=== PATIENT | female | born 1940 | race Caucasian/White ===

== ENCOUNTER 2018-10-09 12:23 | Observation (INO) | payer OTHER ==
[2018-10-09] MEDS ORDERED: ONDANSETRON 4 MG/2 ML VIAL IV PRN (15:00)
[2018-10-09] MEDS ORDERED: ONDANSETRON 4 MG (ODT) TAB PO PRN (15:00)
[2018-10-09] MEDS ORDERED: LOPERAMIDE HCL 2 MG CAPSULE PO PRN (15:00)
[2018-10-09] MEDS ORDERED: POLYETHYL GLY 3350 17 GM/DOSE PO PRN (15:00)
[2018-10-09] MEDS ORDERED: ACETAMINOPHEN 325 MG TABLET PO PRN (15:00)
[2018-10-09] MEDS ORDERED: DIPHENHYDRAMINE 25 MG TAB/CAP PO PRN (15:00)
[2018-10-09] MEDS: NACHLORIDE 0.45% 1,000 ML IV SCH (15:12)
[2018-10-09 15:43] LABS: Absolute Lymphocytes (CBC) 1.1 K/uL (0.7-4.9); Absolute Monocytes 0.4 K/uL (0.1-1.3); Absolute Neutrophil 1.8 K/uL (1.8-8.0); Hematocrit 25.6 % (36.0-45.0); Lymphocytes % 31.9 % (15.3-44.8); MCH 33.7 pg (27.0-35.0); MPV 7.6 fL (7.6-11.3); Monocytes % 10.3 % (3.3-12.3); RBC Red Blood Cell Count 2.56 M/uL (3.86-4.86)
[2018-10-09 15:47] LABS: Protime INR 1.56
[2018-10-09 16:12] LABS: Albumin 3.3 g/dL (3.4-5.0); Bilirubin Direct 0.2 mg/dL (0-0.2); Bilirubin Total 0.4 mg/dL (0.2-1.0); Ferritin 122.1 ng/mL (8-388); Magnesium 2.5 mg/dL (1.8-2.4); Phosphorus 3.5 mg/dL (2.5-4.9); Potassium 3.6 mmol/L (3.5-5.1); Protein, Total 6.2 g/dL (6.4-8.2)
--- NOTE | 2018-10-09 17:36 | RAD REPORT ---
EXAM DESCRIPTION: CT - Abdomen Pelvis W Contrast - 10/09/2018 5:00 pm CLINICAL HISTORY: GI bleed, abdominal pain, diarrhea COMPARISON: None. TECHNIQUE: Biphasic, helical CT imaging of the abdomen and pelvis was performed following 100 ml non -ionic IV contrast. Oral contrast was given. All CT scans are performed using dose optimization technique as appropriate and may include automated exposure control or mA/KV adjustment according to patient size. FINDINGS: No suspicious findings in the lung bases. Cardiomegaly present without pericardial effusio n. The liver, spleen, and pancreas show no suspicious findings. Two large gallstones are present in a no rmal-sized gallbladder. No acute gallbladder process seen. No biliary tree dilatation. Symmetric renal function is seen with no hydronephrosis or suspicious renal mass. No pyelonephritis o r acute renal parenchymal process. No urinary bladder abnormality. Uterus is absent. Ovaries are abse nt or atrophic. No gastric dilatation or wall thickening. Stomach is only partially filled. No dilated large or small bowel. Patient has moderate stool volume throughout the colon and a moderately prominent sigmoid div erticulosis. No diverticulitis findings. No free air, free fluid or inflammatory stranding. No lakhwinder ia, mass or bulky lymphadenopathy. The urinary bladder is without significant finding. No adrenal abn ormality. No suspicious bony findings. IMPRESSION: No free air, obstruction or other surgically emergent finding. Moderately large stool volume throughout the colon with prominent diverticulosis. No diverticulitis o r acute GI process seen. Cholelithiasis without active gallbladder or biliary tree process identifiable. Cardiomegaly.
--- NOTE | 2018-10-09 17:37 | RAD REPORT ---
EXAM DESCRIPTION: RAD - Chest Pa And Lat (2 Views) - 10/09/2018 5:22 pm CLINICAL HISTORY: Syncope, chest pain COMPARISON: None. TECHNIQUE: PA and lateral views of the chest were obtained. FINDINGS: The lungs are fibrotic. No peripheral mass or consolidation. Upper lobe vasculature withi n normal limits. Mild cardiomegaly without vascular engorgement. Trachea is midline. No pleural effus ion or pneumothorax seen. No acute bony finding noted. No aortic abnormality. IMPRESSION: Prominent fibrotic lung pattern without acute cardiopulmonary finding.
--- NOTE | 2018-10-09 17:37 | RAD REPORT ---
EXAM DESCRIPTION: RAD - Hip Left 2 View - 10/09/2018 5:23 pm CLINICAL HISTORY: Fall, hip pain COMPARISON: None. FINDINGS: AP and frogleg views of the left hip were obtained. There is no fracture or dislocation. N o acute or destructive bony process seen. No soft tissue abnormality. IMPRESSION: Negative left hip examination for acute or significant findings.
--- NOTE | 2018-10-09 18:25 | RAD REPORT ---
EXAM DESCRIPTION: MRI - Brain Wo Cont - 10/09/2018 5:49 pm CLINICAL HISTORY: Syncope, right-sided weakness COMPARISON: None. TECHNIQUE: Sagittal T1-weighted images were obtained along with axial PD, heavily T2-weighted and T2 -FLAIR images. Axial DWI and ADC mapping sequences were also obtained along with coronal heavily T2-w eighted images. FINDINGS: No intracranial hemorrhage, mass or acute infarction. There is no edema or shift of midlin e structures. Mild to moderate underlying atrophy changes are present. Ventricular size is in proport ion. There is a large area of abnormal T2 signal with associated volume loss changes in the left cere bral frontal parietal junction. Scattered white matter signal abnormalities elsewhere in the cerebral hemispheres. Brainstem, cerebellum and basal ganglia are mostly spared. Meier-matter/white matter kirti ction is preserved. Signal voids are seen as a normal finding in the major intracranial vessels. No globe or orbital content abnormality. Sella and suprasellar regions are normal. Mastoid air cells and paranasal sinuses are clear. IMPRESSION: No acute infarction. No hemorrhage, mass or acute intracranial finding. 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
--- NOTE | 2018-10-09 18:37 | RAD REPORT ---
EXAM DESCRIPTION: MRI - Hip Left Wo Cont - 10/09/2018 6:19 pm CLINICAL HISTORY: Multiple fall history, pain out of proportion to imaging and physical exam finding s COMPARISON: Left hip October 09, CT imaging October 09 TECHNIQUE: Multiplanar imaging of the pelvis and hip joints performed using T1 weighted, T2 fat satu ration, T2 STIR and proton density sequencing. FINDINGS: Marrow signal characteristics of the proximal left femur are normal and similar to the rig ht side. No sacral ala fracture. Bony pelvis is intact. No joint effusion or periarticular abnormalit y seen. Contusion or edema changes are present in the inferior muscle fibers of the left-side gluteus musculature posterior to the left ischium. This is likely the impact site of the recent fall. There is no hematoma. No signal abnormality in the ischium. IMPRESSION: No hip fracture. Bruising or contusion changes in the muscles and soft tissues posterior to the left ischium. There is no measurable hematoma.
[2018-10-09] MEDS: FERROUS SULFATE 325 MG TAB PO SCH (21:00)
[2018-10-09] MEDS: MELATONIN 3 MG TABLET PO SCH (21:00)
[2018-10-09] MEDS: ATORVASTATIN 10 MG TAB PO SCH (21:00)
[2018-10-09 22:27] LABS: Urine Appearance CLEAR; Urine Bilirubin NEGATIVE (NEG); Urine Blood TRACE (NEG); Urine Color YELLOW; Urine Glucose NEGATIVE (NEG); Urine Protein NEGATIVE (NEG); Urine Specific Gravity 1.015 (1.005-1.030); Urine Urobilinogen 0.2 mg/dL (0.2-1.0)
[2018-10-09 22:28] LABS: Urine Microscopic Reflex ORDER UMIC
[2018-10-09 22:51] LABS: Urine Bacteria 20-50 /HPF (<20); Urine Culture Reflex Order REFLEXED; Urine RBC <5 /HPF (NONE SEEN)
[2018-10-10 06:38] LABS: Absolute Lymphocytes (CBC) 0.7 K/uL (0.7-4.9); Absolute Monocytes 0.3 K/uL (0.1-1.3); Absolute Neutrophil 1.6 K/uL (1.8-8.0); Basophils % 1.2 % (0-1.3); Hematocrit 21.2 % (36.0-45.0); Lymphocytes % 25.6 % (15.3-44.8); MCH 34.2 pg (27.0-35.0); MPV 8.3 fL (7.6-11.3); RBC Red Blood Cell Count 2.15 M/uL (3.86-4.86)
[2018-10-10 06:52] LABS: Magnesium 2.4 mg/dL (1.8-2.4); Potassium 3.9 mmol/L (3.5-5.1)
[2018-10-10] MEDS: DIGOXIN 0.125 MG TABLET PO SCH (08:43)
[2018-10-10] MEDS: MAGNESIUM OXIDE 400 MG TAB PO SCH (08:44)
[2018-10-10] MEDS ORDERED: MAGNESIUM OXIDE 400 MG PO SCH (09:00)
[2018-10-10] MEDS ORDERED: SODIUM CHLORIDE 0.9% 10ML INJ IV PRN (09:43)
[2018-10-10] MEDS ORDERED: NA CHLORIDE 0.9% 250 ML ONE ×3 (10:01→19:56)
[2018-10-10 10:26] LABS: Urine White Blood Cell Casts OK
[2018-10-10 10:27] LABS: Anisocytosis 1+; Blood Morphology Comment NOTED (NOT SEEN); Platelet Estimate ADEQ
--- NOTE | 2018-10-10 12:11 | EKG ---
Test Date: 2018-10-09 Test Time: 16:33:13 Performance Improvement Coordinator: VERENICE MEASUREMENT RESULTS: Intervals: Rate: 69 IA: QRSD: 86 QT: 410 QTc: 439 [place]: P: IA: QRS: 58 T: -17 INTERPRETIVE STATEMENTS: Atrial fibrillation Low voltage QRS Nonspecific ST and T wave abnormality, probably digitalis effect Abnormal ECG No previous ECG available for comparison Electronically Signed On 10-10-18 12:09:15 DENTAL SERVICES DIRECTOR by Mike Sher
[2018-10-10] MEDS ORDERED: Ringers Lactate 1,000 ML IV ONE (15:49)
[2018-10-10] MEDS ORDERED: LIDOCAINE 1% MPF 5 ML VIAL ONE (15:57)
[2018-10-10] MEDS ORDERED: PROPOFOL 200 MG/20 ML VIAL IV ONE (15:57)
--- NOTE | 2018-10-10 17:48 | P.PN ---
Subjective Date of Service: 10/10/18 Chief Complaint: FEELS BETTER, SOME WEAK, GENERAL. SHE HAS NO CHEST PAIN, DYSPNEA, WEAKNESS OR FATIGUE. Review of Systems 10-point ROS is otherwise unremarkable Physical Examination - Vital Signs Temperature: 97.8 F Blood Pressure: 110/60 Pulse: 71 Respirations: 16 Pulse Ox (%): 98 - Physical Exam General: Alert, In no apparent distress HEENT: Atraumatic, PERRLA, EOMI Neck: Supple, JVD not distended Respiratory: Clear to auscultation bilaterally, Normal air movement Cardiovascular: Regular rate/rhythm, Normal S1 S2 Gastrointestinal: Normal bowel sounds, No tenderness Musculoskeletal: No tenderness Integumentary: No rashes Neurological: Normal speech, Normal tone, Normal affect Lymphatics: No axilla or inguinal lymphadenopathy - Studies Laboratory Data (last 24 hrs) 10/10/18 06:00: Sodium 142, Potassium 3.9, BUN 24 H, Creatinine 0.80, Glucose 85 , Magnesium 2.4 10/10/18 06:00: WBC 2.8 L D, Hgb 7.3 L*, Hct 21.2 L D, Plt Count 168 Medications List Reviewed: Yes Assessment And Plan - Current Problems (Diagnosis) (1) Anemia Current Visit: Yes Status: Acute Plan: DOWN TO 7.3 GM. TRANSFUSE TWO UNITS PACKED RBCS. CALLED DR. SOLORIO TO GET EGD DONE. HE IS NOT OYSTER UNLOADER TODAY. THIS WHOLE WEEK WE HAVE NO GI DOCTOR OYSTER UNLOADER AT THIS HOSPITAL I STARTED HER ON PROTONIX. TALKED TO SON AND ANSWERS ALL QUESTIONS, ABOUT MRI, CT SCAN, GALL STONES. SHE WITH NO PAIN IN ABDOMEN , GALL STONES ARE LEFT ALONE. SHE HAS NO PULMONARY SYMPTOMS. (2) Gastrointestinal bleed Onset Date: 10/10/18 Current Visit: Yes Status: Acute
[2018-10-10] MEDS: ATORVASTATIN 10 MG TAB PO SCH (20:48)
[2018-10-10] MEDS: FERROUS SULFATE 325 MG TAB PO SCH (20:48)
[2018-10-10] MEDS: MELATONIN 3 MG TABLET PO SCH (20:48)
[2018-10-11] MEDS: NACHLORIDE 0.45% 1,000 ML IV SCH (00:20)
[2018-10-11 01:21] LABS: Hematocrit 33.1 % (36.0-45.0)
[2018-10-11 06:31] LABS: Absolute Monocytes 0.5 K/uL (0.1-1.3); Absolute Neutrophil 2.2 K/uL (1.8-8.0); Basophils % 0.4 % (0-1.3); Eosinophils % 6.8 % (0-4.4); Hematocrit 32.6 % (36.0-45.0); Lymphocytes % 25.6 % (15.3-44.8); MCH 32.7 pg (27.0-35.0); MCV 95.4 fL (80-100); RBC Red Blood Cell Count 3.42 M/uL (3.86-4.86)
[2018-10-11 06:34] LABS: Magnesium 2.4 mg/dL (1.8-2.4); Potassium 4.5 mmol/L (3.5-5.1)
[2018-10-11] MEDS: MAGNESIUM OXIDE 400 MG TAB PO SCH (08:56)
[2018-10-11] MEDS: DIGOXIN 0.125 MG TABLET PO SCH (08:56)
[2018-10-11] MEDS ORDERED: PANTOPRAZOLE 40 MG INJ IVP SCH (09:00)
--- NOTE | 2018-10-11 19:31 | OP ---
Date of Procedure: 10/10/2018 Surgeon: Cristian Carnes MD Procedure To Be Performed: Esophagogastroduodenoscopy. Indication For Procedure: Anemia, suspected upper GI bleed. Plan For Anesthesia: Monitored anesthesia care. Technique: After obtaining informed consent from the patient and explaining risks and complications which include, but are not limited to, bleeding, infection, perforation, and anesthesia complication, the patient was placed in the left lateral position and sedation was given. From then on, the scope was advanced into the mouth and carefully guided up to the third portion of the duodenum. There was no evidence of active bleeding. After the completion of examination, the scope and equipment were w ithdrawn and procedure terminated in a safe manner. Findings: Esophagus: In the mid esophagus, there was an area of mucosal granularity that was seen. Biopsies were taken. There was evidence of LA grade B esophagitis in the distal esophagus as well a s a small hiatal hernia. Stomach: Mild patchy erythema seen in the antrum; however, in the body, there was a patch of moderat e erythema with few erosions. Biopsies taken from the body and antrum. Duodenum: The bulb and second portion appeared normal. Complications: None. Tolerance To Anesthesia: Excellent. Postoperative Diagnoses: Abnormal esophageal biopsy, esophagitis, erosive gastritis. Plan: 1.Await pathology results. 2.PPI to continue. 3.I will start back on diet, advance as tolerated. 4.Even though there was no stigmata of significant bleeding, it may be possible that the findings co uld have caused a slow chronic anemia. We will continue to evaluate this situation. If needed, furt her management can be undertaken as an outpatient basis. US/MODL Voice ID: [id number] Report ID: [id number]
--- NOTE | 2018-10-11 21:33 | P.DS ---
Admission Date: 10/09/18 Discharge Date: 10/11/18 Disposition: DC HOME/HOME HEALTH CARE Reason for Admission: FEELS BETTER, SOME WEAK, GENERAL. - Problems (1) Anemia Status: Acute (2) Gastrointestinal bleed Onset Date: 10/10/18 Status: Acute Hospital Course: MS. SCOTT HAS EROSIVE GASTRITIS LEADING TO ANEMIA . WE HAD TO STOP XARELTO. FAMILY UNDERSTANDS THE RISK OF XARELTO AND NOT HAVING IT. DR. ADAMS IS MADE AWARE. SHE IS STABLE TO DISCHARGE. FEELS WELL. SON AT BEDSIDE. IF CONTINUES TO HAVE ANEMIA OR MORE LOSS OF BLOOD , WILL GET COLONSCOPY DONE. RISK OF IT IS HIGHER THAN EGD. Vital Signs/Physical Exam: Temp Pulse Resp BP Pulse Ox 97 F 67 18 152/69 H 98 10/11/18 08:00 10/11/18 08:00 10/11/18 08:00 10/11/18 08:00 10/11/18 08:00 Laboratory Data at Discharge: WBC 4.1 K/uL (4.3-10.9) L D 10/11/18 06:05 Hgb 11.2 g/dL (12.0-15.0) L 10/11/18 06:05 Hct 32.6 % (36.0-45.0) L 10/11/18 06:05 Plt Count 187 K/uL (152-406) 10/11/18 06:05 PT 18.5 SECONDS (9.5-12.5) H 10/09/18 15:25 INR 1.56 10/09/18 15:25 APTT 34.5 SECONDS (24.3-36.9) 10/09/18 15:25 Sodium 143 mmol/L (136-145) 10/11/18 06:05 Potassium 4.5 mmol/L (3.5-5.1) 10/11/18 06:05 BUN 18 mg/dL (7-18) 10/11/18 06:05 Creatinine 0.80 mg/dL (0.55-1.3) 10/11/18 06:05 Glucose 97 mg/dL (74-106) 10/11/18 06:05 Phosphorus 3.5 mg/dL (2.5-4.9) 10/09/18 15:25 Magnesium 2.4 mg/dL (1.8-2.4) 10/11/18 06:05 Total Bilirubin 0.4 mg/dL (0.2-1.0) 10/09/18 15:25 AST 31 U/L (15-37) 10/09/18 15:25 ALT 35 U/L (12-78) 10/09/18 15:25 Alkaline Phosphatase 63 U/L (45-117) 10/09/18 15:25 Home Medications: Atorvastatin Calcium [Lipitor*] 1 tab PO BEDTIME 10/09/18 Calcium Carbonate [Calcium] 1,000 mg PO BID 10/09/18 Cholecalciferol (Vitamin D3) [Vitamin D 1000 Iu Tab*] 2,000 unit PO DAILY Digoxin [Lanoxin*] 0.125 mg PO DAILY 10/09/18 Ferrous Sulfate [Ferrous Sulfate*] 1 tab PO BEDTIME 10/09/18 Furosemide [Lasix] 1 tab PO DAILY 10/09/18 Magnesium Oxide [Mag-Oxide] 400 mg PO DAILY 10/09/18 Melatonin 1 tab PO BEDTIME 10/09/18 Multivitamin [Daily Multivitamin] 1 tab PO DAILY 10/09/18 [place]-3S/Dha/Epa/Fish Oil/D3 [[place]-3 + D Softgel] 1 cap PO BEDTIME 10/09/18 Potassium Chloride 1 tab PO DAILY 10/09/18 Pantoprazole [Protonix Tab*] 40 mg PO DAILY #90 tab 10/11/18 New Medications: Pantoprazole [Protonix Tab*] 40 mg PO DAILY #90 tab Followup: Jorden Segura MD [Primary Care Provider] - (Call for appointment for 1-2 weeks.)
== END 2018-10-11 10:14 | disposition home health service (06) ==
LOC: 2ND 12:42
PROVIDERS: ADMIT Internal Medicine; ATTEND Internal Medicine
PROC: 0DB68ZX Excision of Stomach, Via Natural or Artificial Opening Endoscopic, Diagnostic (ICD-10-PCS; 2018-10-10)
PROC: 30233N1 Transfusion of Nonautologous Red Blood Cells into Peripheral Vein, Percutaneous Approach (ICD-10-PCS; 2018-10-10)
PROC: 0DB58ZX Excision of Esophagus, Via Natural or Artificial Opening Endoscopic, Diagnostic (ICD-10-PCS; principal; 2018-10-10 16:00)
DX: D64.9 Anemia, unspecified (principal); K92.2 Gastrointestinal hemorrhage, unspecified; K29.70 Gastritis, unspecified, without bleeding; K20.9 Esophagitis, unspecified; K44.9 Diaphragmatic hernia without obstruction or gangrene; I48.91 Unspecified atrial fibrillation; I10 Essential (primary) hypertension; Z86.73 Personal history of transient ischemic attack (TIA), and cerebral infarction without residual deficits
CPT/HCPCS: 36415 ×2; 36430; 43239; 70551; 71046; 73502; 73721; 74177; 80048 ×3; 80076; 82728; 83735 ×3; 84100; 85014; 85018; 85025 ×3; 85610; 85730; 86850; 86900; 86901; 87040; 87086; 87088; 88305; 88312; 88313; 93005; 94760 ×2; C9113; J2704; P9016 ×2; Q9967; 81003; 81015

== ENCOUNTER 2018-11-02 01:44 | Observation (INO) | payer OTHER ==
[2018-11-02] MEDS ORDERED: ONDANSETRON 4 MG/2 ML VIAL ONE (02:02)
[2018-11-02 02:21] LABS: Protime INR 1.08
[2018-11-02 02:27] LABS: Absolute Lymphocytes (CBC) 2.2 K/uL (0.7-4.9); Absolute Monocytes 0.7 K/uL (0.1-1.3); Absolute Neutrophil 7.4 K/uL (1.8-8.0); Basophils % 0.4 % (0-1.3); Eosinophils % 1.9 % (0-4.4); Hematocrit 35.1 % (36.0-45.0); Lymphocytes % 20.7 % (15.3-44.8); MPV 8.5 fL (7.6-11.3); RBC Red Blood Cell Count 3.62 M/uL (3.86-4.86)
[2018-11-02 02:40] LABS: Arterial Blood Carboxyhemoglob 0.9 % (0-1.5); Blood Gas Oxyhemoglobin 96.7 % (94-97); Blood O2 Saturation 98.7 % (92-98.5)
[2018-11-02 02:51] LABS: Albumin 3.4 g/dL (3.4-5.0); Bilirubin Direct 0.2 mg/dL (0-0.2); Bilirubin Total 0.5 mg/dL (0.2-1.0); Protein, Total 7.2 g/dL (6.4-8.2); Troponin (Emerg Dept Use Only) 0.02 ng/mL (0.0-0.045)
[2018-11-02] MEDS ORDERED: NA CHLORIDE 0.9% 1,000 ML ONE (03:21)
[2018-11-02] MEDS ORDERED: Levofloxacin500mg IV 500 MG/100 ML BAG IV ONE (03:29)
--- NOTE | 2018-11-02 04:56 | ER ---
Nurse's Notes [facility] Name: Criselda Arango Age: 78 yrs Sex: Female : 1940 Arrival Date: 11/02/2018 Time: 01:44 Bed 7 Private MD: Diagnosis: Dyspnea;Cardiomegaly;Cholelithiasis;Diastolic (congestive) heart failure;Pleural effusion in conditions classified elsewhere;Acidosis-respiratory acidosis;Atrial fibrillation and flutter Presentation: 11/02 01:42 Presenting complaint: EMS states: Pt lives at [facility], pt reports abdominal pain ea and respiratory distress that started at 0015. Transition of care: patient was not received from another setting of care. Onset of symptoms was November 02, 2018. Risk Assessment: Do you want to hurt yourself or someone else? Patient reports no desire to harm self or others. Initial Sepsis Screen: Does the patient meet any 2 criteria? RR > 20 per min. HR > 90 bpm. Yes Does the patient have a suspected source of infection? No. Patient's initial sepsis screen is negative. Care prior to arrival: 20 G to left AC. 01:42 Method Of Arrival: EMS: [facility] ea 01:42 Acuity: CAITIE 3 ea Triage Assessment: 01:42 General: Appears distressed, uncomfortable, Behavior is restless, Pt placed on BiPAP ea per respiratory, tolerating well. . Pain: Complains of pain in abdomen. Neuro: Level of Consciousness is awake, alert, obeys commands, Oriented to person, place, time, situation. Cardiovascular: Heart tones S1 S2 present Patient's skin is warm and dry. Rhythm is atrial fibrillation. Respiratory: Respiratory: Airway is patent Respiratory effort is labored, Respiratory pattern is tachypnea Breath sounds are clear bilaterally. GI: Abdomen is round non-distended, Bowel sounds present X 4 quads. Reports lower abdominal pain, upper abdominal pain, diarrhea, nausea. Derm: Skin is clammy, Skin is pale, Skin temperature is warm. Historical: - Allergies: 02:16 Sulfa (Sulfonamide Antibiotics); ea - Home Meds: 04:24 Ferrous Sulfate Oral nightly [Active]; digoxin 125 mcg oral tab once daily [Active]; lp1 MagOx 400 mg oral tab daily [Active]; Melatonin Oral nightly [Active]; Protonix 40 mg Oral TbEC 1 tab once daily [Active]; calcium carbonate 500 mg calcium (1,250 mg) Oral tab 1,000 mg twice a day [Active]; Vitamin D3 2,000 unit oral tab daily [Active]; dhfzb-7v-vox-epa-fish oil-D3 300 mg-1,200 mg -1,000 unit oral cap nightly [Active]; 04:31 potassium chloride 20 mEq oral TbER once daily [Active]; Lasix 20 mg oral tab once lp1 daily [Active]; atorvastatin 10 mg oral tab nightly [Active]; - PMHx: 02:16 Atrial Fib; ea 04:24 Corrosive gastritis; Anemia; lp1 04:31 Aortic valve regurgitation; Mitral valve regurgitation; CVA; LVH; pulmonary HTN; lp1 - Immunization history:: Adult Immunizations up to date. - Social history:: Smoking status: Patient/guardian denies using tobacco. - Ebola Screening: : No symptoms or risks identified at this time. Screenin:17 Abuse screen: Denies threats or abuse. Nutritional screening: No deficits noted. ea Tuberculosis screening: No symptoms or risk factors identified. Fall Risk Assessment: 01:45 Reassessment: see triage assessment. ea 02:55 Reassessment: Patient and/or family updated on plan of care and expected duration. Pain ea level reassessed. Patient states feeling better. Patient states symptoms have improved. 04:02 Reassessment: Patient appears in no apparent distress at this time. Patient and/or ca1 family updated on plan of care and expected duration. Pain level reassessed. Patient is alert, oriented x 3, equal unlabored respirations, skin warm/dry/pink. family at bedside. . 05:00 Reassessment: Dr. Ty at bedside to discuss results with patient and son; Denies lp1 any abdominal pain on palpation. Respiratory: Respiratory effort is even. Derm: Skin is fragile, is thin, Skin is dry, Skin is normal. 06:00 Reassessment: Assisted patient to bedside commode. Tolerated well, no dyspnea or pain ca1 upon ambulation noted and reported. . 06:05 Reassessment: Called 2nd floor to give report. Informed that the nurse taking the ca1 patient is currently transferring a patient to ICU. Informed patient and family. . 06:39 Reassessment: Patient appears in no apparent distress at this time. Assisted to the ca1 commode. Tolerated well. No respiratory distress and pain noted and reported. . Vital Signs: 01:45 BP 163 / 88; Pulse 123; Resp 32; Temp 97.6; Pulse Ox 89% on Non-rebreather mask; Weight ea 77.11 kg; Height 5 ft. 8 in. (172.72 cm); 02:26 BP 136 / 72; Pulse 79; Resp 23; Pulse Ox 99% ; ea 02:53 BP 134 / 65; Pulse 90; Resp 23; Pulse Ox 100% on BiPAP O2 75%, IPAP 20, PIP 16; ea 04:00 BP 130 / 53; Pulse 87; Resp 24; Pulse Ox 97% on 4 lpm NC; ca1 05:00 BP 122 / 62; Pulse 88; Resp 23; Pulse Ox 95% on 4 lpm NC; Pain 0/10; ca1 06:30 BP 125 / 60; Pulse 84; Resp 23; Pulse Ox 100% on 4 lpm NC; ca1 01:45 Body Mass Index 25.85 (77.11 kg, 172.72 cm) ea 01:45 Pt placed on bipap per biological science technician fish ea ED Course: 01:42 Patient has correct armband on for positive identification. Placed in gown. Bed in low ea position. Call light in reach. Side rails up X2. 01:42 Arm band placed on right wrist. Patient placed in an exam room, on a stretcher, on ea oxygen, on telegraph inspector, on pulse oximetry. 01:42 Maintain EMS IV. Dressing intact. Good blood return noted. Site clean \T\ dry. Gauge \T\ ea site: 20 G to left AC. 01:44 Patient arrived in ED. al2 01:50 Initial lab(s) drawn, by me, sent to lab. First set of blood cultures drawn. Inserted ca1 saline lock: 20 gauge in right antecubital area, using aseptic technique. Blood collected. 01:53 Rivera Dougherty PA is PHCP. jr8 01:53 Gonzalo Ty MD is Attending Physician. jr8 02:05 Second set of blood cultures drawn by me. ca1 02:09 Triage completed. ea 02:15 X-ray completed. Portable x-ray completed in exam room. Patient tolerated procedure kw well. 02:17 XRAY Chest (1 view) In Process Unspecified. EDMS 02:39 Gabriela Hardy, QUIN is Primary Nurse. ea 02:53 Notified Nurse Practitioner and/or Physician [employer] Scout of a critical lab result(s), lp1 Lactate 3.9. 03:00 Report given to Gem TSAI. ea 03:[address] via stretcher. eh 03:58 CT completed. Patient tolerated procedure well. Patient moved back from CT. eh 03:59 CT Abd/Pelvis - W/Contrast In Process Unspecified. EDMS 04:55 Jorden Segura MD is Hospitalizing Provider. yen 06:35 No provider procedures requiring assistance completed. Patient admitted, IV remains in lp1 place. Administered Medications: 01:50 Drug: Zofran 4 mg Route: IVP; Site: left antecubital; ea 03:01 Follow up: Response: No adverse reaction ca1 03:15 Drug: NS 0.9% 1000 ml Route: IV; Rate: 1000 ml; Site: right antecubital; ca1 04:20 Follow up: IV Status: Completed infusion ca1 03:20 Drug: LevaQUIN 500 mg Volume: 100 ml; Route: IVPB; Infused Over: 60 mins; Site: right ca1 antecubital; 04:20 Follow up: Response: No adverse reaction; IV Status: Completed infusion ca1 04:36 Drug: SOLU-Medrol 125 mg Route: IVP; Site: right antecubital; ca1 06:38 Follow up: Response: No adverse reaction ca1 04:40 Drug: Digoxin 0.5 mg Route: IVP; Site: right antecubital; ca1 06:37 Follow up: Response: No adverse reaction ca1 05:10 Drug: ProTONIX 40 mg Route: IVP; Site: right antecubital; ca1 06:38 Follow up: Response: No adverse reaction ca1 05:12 Drug: AtroVENT Aerosol 0.5 mg Route: Inhalation; ca1 05:12 Drug: Xopenex 1.25 mg Route: Inhalation; ca1 05:15 Drug: Lasix 20 mg Route: IVP; Site: right antecubital; ca1 06:38 Follow up: Urine output 120 ml; Response: No adverse reaction ca1 Output: 06:38 Urine: 120ml; Total: 120ml. ca1 Outcome: 04:55 Decision to Hospitalize by Provider. yen 06:35 Admitted to Med/surg accompanied by nurse, via wheelchair, room 223, with oxygen, with lp1 chart, Report called to QUIN Dobson 06:35 Condition: stable 06:35 Instructed on the need for admit. 07:05 Patient left the ED. ca1 Signatures: Dispatcher [employer] EDGonzalo Wakefield MD MD cha Hagler, Ervin eh Whitley, Kimberlee kw Pena, Laura, RN RN lp1 Rivera Dougherty PA PA jr8 Gabriela Hardy RN RN ea Love, Angelica al2 Acob, Cheryl, RN RN ca1 Corrections: (The following items were deleted from the chart) 02:38 01:42 General: Appears distressed, uncomfortable, Behavior is restless, ea ea 02:38 01:42 Respiratory: Airway is patent Respiratory effort is labored, Respiratory pattern ea is tachypnea Breath sounds are clear bilaterally. ea 04:24 02:16 Home Meds: atorvastatin oral oral; ea lp1 04:24 02:16 Home Meds: Ferrous Sulfate Oral; ea lp1 04:24 02:16 Home Meds: Digoxin Oral; ea lp1 04:24 02:16 Home Meds: Lasix Oral; ea lp1 04:24 02:16 Home Meds: MagOx oral oral; ea lp1 04:31 04:24 Home Meds: atorvastatin oral oral nightly; lp1 lp1 04:31 04:24 Home Meds: Lasix Oral once daily; lp1 lp1 04:31 04:24 Home Meds: Potassium Chloride Oral once daily; lp1 lp1
--- NOTE | 2018-11-02 04:56 | EDPHYS ---
Physician Documentation [facility] Name: Criselda Arango Age: 78 yrs Sex: Female : 1940 Arrival Date: 11/02/2018 Time: 01:44 Bed 7 Private MD: ED Physician Gonzalo Ty HPI: 11/02 02:29 This 78 yrs old Female presents to ER via EMS with complaints of Abdominal jr8 pain and shortness of breath. 02:29 Patient complained of diarrhea and abdominal pain for the past three days. Pain jr8 worsening and now having acute onset shortness of breath. Onset: The symptoms/episode began/occurred acutely. Severity of symptoms: At their worst the symptoms were moderate in the emergency department the symptoms are unchanged. The patient has not experienced similar symptoms in the past. The patient has not recently seen a physician. Historical: - Allergies: 02:16 Sulfa (Sulfonamide Antibiotics); ea - Home Meds: 04:24 Ferrous Sulfate Oral nightly [Active]; digoxin 125 mcg oral tab once daily [Active]; lp1 MagOx 400 mg oral tab daily [Active]; Melatonin Oral nightly [Active]; Protonix 40 mg Oral TbEC 1 tab once daily [Active]; calcium carbonate 500 mg calcium (1,250 mg) Oral tab 1,000 mg twice a day [Active]; Vitamin D3 2,000 unit oral tab daily [Active]; zswdo-2i-xyd-epa-fish oil-D3 300 mg-1,200 mg -1,000 unit oral cap nightly [Active]; 04:31 potassium chloride 20 mEq oral TbER once daily [Active]; Lasix 20 mg oral tab once lp1 daily [Active]; atorvastatin 10 mg oral tab nightly [Active]; - PMHx: 02:16 Atrial Fib; ea 04:24 Corrosive gastritis; Anemia; lp1 04:31 Aortic valve regurgitation; Mitral valve regurgitation; CVA; LVH; pulmonary HTN; lp1 - Immunization history:: Adult Immunizations up to date. - Social history:: Smoking status: Patient/guardian denies using tobacco. - Ebola Screening: : No symptoms or risks identified at this time. ROS: 02:29 Eyes: Negative for injury, pain, redness, and discharge, ENT: Negative for injury, jr8 pain, and discharge, Neck: Negative for injury, pain, and swelling, Cardiovascular: Negative for chest pain, palpitations, and edema, Back: Negative for injury and pain, MS/Extremity: Negative for injury and deformity, Skin: Negative for injury, rash, and discoloration, Neuro: Negative for headache, weakness, numbness, tingling, and seizure. 02:29 Respiratory: Positive for shortness of breath. 02:29 Abdomen/GI: Positive for abdominal pain, diarrhea. Exam: 02:29 Eyes: Pupils equal round and reactive to light, extra-ocular motions intact. Lids and jr8 lashes normal. Conjunctiva and sclera are non-icteric and not injected. Cornea within normal limits. Periorbital areas with no swelling, redness, or edema. ENT: Nares patent. No nasal discharge, no septal abnormalities noted. Tympanic membranes are normal and external auditory canals are clear. Oropharynx with no redness, swelling, or masses, exudates, or evidence of obstruction, uvula midline. Mucous membranes moist. Neck: Trachea midline, no thyromegaly or masses palpated, and no cervical lymphadenopathy. Supple, full range of motion without nuchal rigidity, or vertebral point tenderness. No Meningismus. Back: No spinal tenderness. No costovertebral tenderness. Full range of motion. Skin: Warm, dry with normal turgor. Normal color with no rashes, no lesions, and no evidence of cellulitis. MS/ Extremity: Pulses equal, no cyanosis. Neurovascular intact. Full, normal range of motion. Neuro: Awake and alert, GCS 15, oriented to person, place, time, and situation. Cranial nerves II-XII grossly intact. Motor strength 5/5 in all extremities. Sensory grossly intact. Cerebellar exam normal. Normal gait. 02:29 Cardiovascular: Rate: tachycardic, Rhythm: irregularly irregular, Pulses: Pulses are 2+ in right radial artery and left radial artery. Heart sounds: normal, normal S1and S2, no S3 or S4, no murmur, no rub, no gallop, Edema: is not appreciated. 02:29 Respiratory: mild respiratory distress is noted, Respirations: labored breathing, tachypnea, Breath sounds: decreased breath sounds, that are mild, are located in both bases. 02:29 Abdomen/GI: Inspection: scar(s), are noted in the , Palpation: soft, in all quadrants, mild abdominal tenderness, in the abdomen diffusely, mass, is not appreciated, rebound tenderness, is not appreciated, voluntary guarding, is not appreciated, involuntary guarding, is not appreciated, no appreciated organomegaly, Indicators: McBurney's point is not tender, Bee's sign is negative, Rovsing's sign is negative, Liver: tenderness, is not appreciated. Vital Signs: 01:45 BP 163 / 88; Pulse 123; Resp 32; Temp 97.6; Pulse Ox 89% on Non-rebreather mask; Weight ea 77.11 kg; Height 5 ft. 8 in. (172.72 cm); 02:26 BP 136 / 72; Pulse 79; Resp 23; Pulse Ox 99% ; ea 02:53 BP 134 / 65; Pulse 90; Resp 23; Pulse Ox 100% on BiPAP O2 75%, IPAP 20, PIP 16; ea 04:00 BP 130 / 53; Pulse 87; Resp 24; Pulse Ox 97% on 4 lpm NC; ca1 05:00 BP 122 / 62; Pulse 88; Resp 23; Pulse Ox 95% on 4 lpm NC; Pain 0/10; ca1 06:30 BP 125 / 60; Pulse 84; Resp 23; Pulse Ox 100% on 4 lpm NC; ca1 01:45 Body Mass Index 25.85 (77.11 kg, 172.72 cm) ea 01:45 Pt placed on bipap per supervisor respiratory ea MDM: 01:53 Patient medically screened. [facility] 02:29 Data reviewed: vital signs, nurses notes, lab test result(s), EKG, radiologic studies, jr plain films. Data interpreted: Pulse oximetry: on room air is 100 %. Interpretation: normal. Counseling: I had a detailed discussion with the patient and/or guardian regarding: the historical points, exam findings, and any diagnostic results supporting the discharge/admit diagnosis, lab results, radiology results, the need for further work-up and treatment in the hospital. 11/02 01:54 Order name: Basic Metabolic Panel; Complete Time: 03:09 11/02 01:54 Order name: CBC with Diff; Complete Time: 02:28 11/02 01:54 Order name: LFT's; Complete Time: 03:09 11/02 01:54 Order name: Magnesium; Complete Time: 03:11/02 01:54 Order name: NT PRO-BNP; Complete Time: 03:09 [facility] 11/02 01:54 Order name: PT-INR; Complete Time: 02:29 [facility] 11/02 01:54 Order name: Troponin (emerg Dept Use Only); Complete Time: 03:09 [facility] 11/02 01:54 Order name: Lipase; Complete Time: 03:09 [facility] 11/02 01:59 Order name: Blood Culture Adult (2) [facility] 11/02 01:59 Order name: Lactate; Complete Time: 03:09 [facility] 11/02 02:29 Order name: ABG 11/02 02:29 Order name: ABG Arterial Blood Gas; Complete Time: 03:09 [facility] 11/02 03:28 Order name: Digoxin; Complete Time: 04:30 [facility] 11/02 05:36 Order name: Lactate Sepsis 2 HR Follow-up; Complete Time: 23:13 [facility] 11/02 01:54 Order name: XRAY Chest (1 view); Complete Time: 23:13 [facility] 11/02 01:54 Order name: EKG; Complete Time: 01:55 11/02 01:54 Order name: Cardiac monitoring; Complete Time: 02:38 [facility] 11/02 01:54 Order name: EKG - Nurse/Tech; Complete Time: 02:38 [facility] 11/02 01:54 Order name: IV Saline Lock; Complete Time: 02:38 [facility] 11/02 03:10 Order name: CT Abd/Pelvis - W/Contrast; Complete Time: 23:13 [facility] 11/02 05:11 Order name: CONS Physician Consult [facility] 11/02 01:54 Order name: Labs collected and sent; Complete Time: 02:38 [facility] 11/02 01:54 Order name: O2 Per Protocol; Complete Time: 02:38 [facility] 11/02 01:54 Order name: O2 Sat Monitoring; Complete Time: 02:38 Administered Medications: 01:50 Drug: Zofran 4 mg Route: IVP; Site: left antecubital; ea 03:01 Follow up: Response: No adverse reaction ca1 03:15 Drug: NS 0.9% 1000 ml Route: IV; Rate: 1000 ml; Site: right antecubital; ca1 04:20 Follow up: IV Status: Completed infusion ca1 03:20 Drug: LevaQUIN 500 mg Volume: 100 ml; Route: IVPB; Infused Over: 60 mins; Site: right ca1 antecubital; 04:20 Follow up: Response: No adverse reaction; IV Status: Completed infusion ca1 04:36 Drug: SOLU-Medrol 125 mg Route: IVP; Site: right antecubital; ca1 06:38 Follow up: Response: No adverse reaction ca1 04:40 Drug: Digoxin 0.5 mg Route: IVP; Site: right antecubital; ca1 06:37 Follow up: Response: No adverse reaction ca1 05:10 Drug: ProTONIX 40 mg Route: IVP; Site: right antecubital; ca1 06:38 Follow up: Response: No adverse reaction ca1 05:12 Drug: AtroVENT Aerosol 0.5 mg Route: Inhalation; ca1 05:12 Drug: Xopenex 1.25 mg Route: Inhalation; ca1 05:15 Drug: Lasix 20 mg Route: IVP; Site: right antecubital; ca1 06:38 Follow up: Urine output 120 ml; Response: No adverse reaction ca1 Disposition: 04:57 Co-signature as Attending Physician, Jorden Segura MD I agree with the assessment and yen plan of care. Disposition: 11/02/18 04:55 Hospitalization ordered by Jorden Segura for Inpatient Admission. Preliminary diagnosis are Dyspnea, Cardiomegaly, Cholelithiasis, Diastolic (congestive) heart failure, Pleural effusion in conditions classified elsewhere, Acidosis - respiratory acidosis, Atrial fibrillation and flutter. - Bed requested for Telemetry/MedSurg (Inpatient). - Status is Inpatient Admission. ca1 - Condition is Fair. - Problem is new. - Symptoms have improved. UTI on Admission? No Signatures: Dispatcher [employer] EDMS Gonzalo Ty MD MD cha Martinez, Eric em1 Irene Wallace RN RN lp1 Rivera Dougherty PA PA jr8 Gabriela Hardy RN RN ea Acob, Cheryl, RN RN ca1 Corrections: (The following items were deleted from the chart) 04:24 02:16 Home Meds: atorvastatin oral oral; ea lp1 04:24 02:16 Home Meds: Ferrous Sulfate Oral; ea lp1 04:24 02:16 Home Meds: Digoxin Oral; ea lp1 04:24 02:16 Home Meds: Lasix Oral; ea lp1 04:24 02:16 Home Meds: MagOx oral oral; ea lp1 04:31 04:24 Home Meds: atorvastatin oral oral nightly; lp1 lp1 04:31 04:24 Home Meds: Lasix Oral once daily; lp1 lp1 04:31 04:24 Home Meds: Potassium Chloride Oral once daily; lp1 lp1 04:56 04:55 Hospitalization Ordered by Jorden Segura MD for Inpatient Admission. Preliminary yen diagnosis is Dyspnea; Cardiomegaly; Cholelithiasis; Diastolic (congestive) heart failure; Pleural effusion in conditions classified elsewhere; Acidosis - respiratory acidosis. Bed requested for Telemetry/MedSurg (Inpatient). Status is Inpatient Admission. Condition is Fair. Problem is new. Symptoms have improved. UTI on Admission? No. yen 05:45 04:56 11/02/2018 04:55 Hospitalization Ordered by Jorden Segura MD for Inpatient em1 Admission. Preliminary diagnosis is Dyspnea; Cardiomegaly; Cholelithiasis; Diastolic (congestive) heart failure; Pleural effusion in conditions classified elsewhere; Acidosis - respiratory acidosis; Atrial fibrillation and flutter. Bed requested for Telemetry/MedSurg (Inpatient). Status is Inpatient Admission. Condition is Fair. Problem is new. Symptoms have improved. UTI on Admission? No. yen 07:05 05:45 11/02/2018 04:55 Hospitalization Ordered by Jorden Segura MD for Inpatient ca1 Admission. Preliminary diagnosis is Dyspnea; Cardiomegaly; Cholelithiasis; Diastolic (congestive) heart failure; Pleural effusion in conditions classified elsewhere; Acidosis - respiratory acidosis; Atrial fibrillation and flutter. Bed requested for Telemetry/MedSurg (Inpatient). Status is Inpatient Admission. Condition is Fair. Problem is new. Symptoms have improved. UTI on Admission? No. em1
[2018-11-02] MEDS ORDERED: IPRATROPIUM BROM 0.5MG/2.5ML ONE (05:12)
[2018-11-02] MEDS ORDERED: METHYLPREDNISOLONE 125 MG INJ ONE (05:12)
[2018-11-02] MEDS ORDERED: FUROSEMIDE 20 MG/ 2ML VIAL ONE (05:12)
[2018-11-02] MEDS ORDERED: LEVALBUTEROL 1.25 MG/3 ML NEB ONE (05:12)
[2018-11-02] MEDS ORDERED: PANTOPRAZOLE 40 MG INJ ONE (05:13)
[2018-11-02] MEDS ORDERED: DIGOXIN 0.25 MG/ML AMP ONE (05:13)
--- NOTE | 2018-11-02 05:57 | EKG ---
Test Date: 2018-11-02 Test Time: 01:57:36 [employer]: MARIA E MEASUREMENT RESULTS: Intervals: Rate: 118 LA: QRSD: 90 QT: 312 QTc: 437 [place]: P: LA: QRS: 73 T: 1 INTERPRETIVE STATEMENTS: Atrial fibrillation with rapid ventricular response Nonspecific ST and T wave abnormality Abnormal ECG Compared to ECG 10/09/2018 16:33:13 No significant changes Electronically Signed On 11-02-18 05:57:09 [employer]IG BUILDER HEL[employer] by Urban Jernigan
[2018-11-02] MEDS ORDERED: ONDANSETRON 4 MG/2 ML VIAL IV PRN (07:46)
[2018-11-02] MEDS ORDERED: ACETAMINOPHEN 500 MG TAB PO PRN (07:46)
[2018-11-02] MEDS ORDERED: ALBUTEROL 2.5 MG/3 ML NEB SOL NEB PRN (07:46)
[2018-11-02] MEDS ORDERED: SODIUM CHLORIDE 0.9% 10ML INJ IV PRN (07:46)
[2018-11-02] MEDS ORDERED: IPRATROPIUM BROM 0.5MG/2.5ML NEB PRN (07:46)
--- NOTE | 2018-11-02 08:28 | RAD REPORT ---
EXAM DESCRIPTION: CTAbdomen Pelvis W Contrast - 11/02/2018 6:33 am CLINICAL HISTORY: Abdominal pain. iv only;Abd pain COMPARISON: Abdomen Pelvis W Contrast dated 10/09/2018 TECHNIQUE: Biphasic CT imaging of the abdomen and pelvis was performed with 100 ml non-ionic IV cont rast. All CT scans are performed using dose optimization technique as appropriate and may include automated exposure control or mA/KV adjustment according to patient size. FINDINGS: Small bilateral pleural effusions are present with linear atelectasis in both lung bases.M ild interstitial pulmonary edema suspected. The large stone is seen within the gallbladder. Mild periportal edema is seen in the liver. The splee n, adrenal glands and kidneys show no acute process. No pancreatic lesion is observed. Aortoiliac ath erosclerosis. No bowel obstruction, free air, free fluid or abscess. Prominent sigmoid diverticulosis is seen. The appendix is not identified as a discrete structure, however, no secondary findings of appendicitis ar e identified. No evidence of significant lymphadenopathy. No suspicious bony findings. IMPRESSION: Cholelithiasis. Mild CHF likely present.
--- NOTE | 2018-11-02 08:29 | RAD REPORT ---
EXAM DESCRIPTION: RAD - Chest Single View - 11/02/2018 2:19 am CLINICAL HISTORY: DYSPNEA Chest pain. COMPARISON: Chest Pa And Lat (2 Views) dated 10/09/2018 FINDINGS: Portable technique limits examination quality. Mild bilateral interstitial lung opacities are present, likely representing interstitial pneumonia or mild interstitial pulmonary edema. Trace pleural fluid is present bilaterally. The heart is mildly e nlarged in size. No displaced fractures.Aortic atherosclerosis. IMPRESSION: Mild CHF likely present.
[2018-11-02] MEDS ORDERED: PANTOPRAZOLE 40 MG INJ IVP SCH (09:00)
[2018-11-02] MEDS ORDERED: DIGOXIN 0.25 MG TABLET PO SCH (09:00)
--- NOTE | 2018-11-02 09:18 | RAD REPORT ---
EXAM DESCRIPTION: US - Abdomen Exam Limited - 11/02/2018 9:00 am CLINICAL HISTORY: gallstones COMPARISON: Abdomen Pelvis W Contrast dated 11/02/2018 FINDINGS: The gallbladder demonstrates multiple shadowing gallstones. No pericholecystic fluid or ga llbladder wall thickening. The common bile duct is normal measuring 4 mm. The liver demonstrates no findings of intrahepatic biliary dilatation. IMPRESSION: Cholelithiasis.
[2018-11-02] MEDS: FUROSEMIDE 20 MG/ 2ML VIAL IV SCH ×2 (09:22→17:00)
[2018-11-02] MEDS: METHYLPREDNISOLONE 40 MG INJ IV SCH ×2 (12:16→17:00)
--- NOTE | 2018-11-02 12:51 | ECHO ---
HEIGHT: 5 ft 8 in WEIGHT: 170 lb 0 oz DATE OF STUDY: 11/02/[address]: Gonzalo Ty MD 2-DIMENSIONAL: YES M.MODE: YES DOPPLER: YES COLOR FLOW: YES TDS: PORTABLE: DEFINITY: BUBBLE STUDY: DIAGNOSIS: CONGESTIVE HEART FAILURE CARDIAC HISTORY: CATHERIZATION: NO SURGERY: NO PROSTHETIC VALVE: NO PACEMAKER: NO MEASUREMENTS (cm) DIASTOLIC (NORMALS) SYSTOLIC (NORMALS) IVSd 1.1 (0.6-1.2) LA Diam 5.5 (1.9-4.0) LVEF 76% LVIDd 5.2 (3.5-5.7) LVIDs 2.9 (2.0-3.5) %FS 45% LVPWd 0.9 (0.6-1.2) Ao Diam 3.1 (2.0-3.7) 2 DIMENSIONAL ASSESSMENT: RIGHT ATRIUM: NORMAL LEFT ATRIUM: DILATED RIGHT VENTRICLE: NORMAL LEFT VENTRICLE: NORMAL TRICUSPID VALVE: NORMAL MITRAL VALVE: MITRAL ANNULAR CALCIFICATION, MITRAL VALVE PROLAPSE PULMONIC VALVE: NORMAL AORTIC VALVE: SCLEROSIS PERICARDIAL EFFUSION: NONE AORTIC ROOT: NORMAL LEFT VENTRICULAR WALL MOTION: NORMAL DOPPLER/COLOR FLOW: MILD TRICUSPID REGURGITATION MILD PULMOANRY HYPERTENSION. COMMENTS: MIDL PULMONARY HYPERTENSION MILD TRICUSPID REGURGITATION. NORMAL EJECTION FRACTION. MITRAL ANNULAR CALCIFICATION, MITRAL VALVE PROLAPSE. AORTIC SCLEROSIS. TECHNOLOGIST: ANASTACIO GONZALEZ
[2018-11-02 13:46] VITALS: O2SAT 94
[2018-11-02 14:14] VITALS: BMI 25.8
[2018-11-02 17:27] VITALS: BP 92/55
[2018-11-02 17:56] VITALS: TEMP 97.5
--- NOTE | 2018-11-02 20:54 | P.SSS ---
Patient History Date of Service: 11/02/18 Reason for admission: PALPITATIONS History of Present Illness: MS. [facility]. SHE HAD PALPITATIONS AND SO REPORTED TO ER. SHE IS BACK TO NORMAL NOW. SHE HAS NO CHOICE OF SELECTING LOW SALT FOOD. UNFORTUNATELY LOT OF FOOD SHE GETS IS HIGH IN SALT. SHE HAD SOUP, SALAD ETC AND MOST LIKELY SALT OVERLOAD. SHE FEELS GREAT AND WANTS TO GO HOME. Allergies Sulfa (Sulfonamide Antibiotics) Allergy (Verified 10/09/18 14:03) Itching/Hives/Rash Home Medications: Atorvastatin Calcium [Lipitor*] 1 tab PO BEDTIME 10/09/18 Cholecalciferol (Vitamin D3) [Vitamin D 1000 Iu Tab*] 2,000 unit PO DAILY Digoxin [Lanoxin*] 0.125 mg PO DAILY 10/09/18 Ferrous Sulfate [Ferrous Sulfate*] 1 tab PO BEDTIME 10/09/18 Furosemide [Lasix] 1 tab PO DAILY 10/09/18 Magnesium Oxide [Mag-Oxide] 400 mg PO DAILY 10/09/18 Multivitamin [Daily Multivitamin] 1 tab PO DAILY 10/09/18 [place]-3S/Dha/Epa/Fish Oil/D3 [[place]-3 + D Softgel] 1 cap PO BEDTIME 10/09/18 Pantoprazole [Protonix Tab*] 40 mg PO DAILY #90 tab 10/11/18 Calcium Carbonate/Vitamin D3 [Calcium 600-Vit D3 2,500 Sftgl] 1,200 mg PO DAILY 11/02/18 Furosemide [Lasix] 10 mg PO DAILY 11/02/18 Melatonin 10 mg PO DAILY 11/02/18 Spironolactone [Aldactone] 25 mg PO DAILY 11/02/18 - Past Medical/Surgical History Has patient received pneumonia vaccine in the past: Yes Diabetic: No -: Atrial Fibrillation -: Stroke -: Hysterectomy -: Carotid artery surgery -: appendectomy -: oophorectomy - Family History Father -: Heart disease - Social History Smoking Status: Former smoker Alcohol use: No CD- Drugs: No Caffeine use: Yes Place of Residence: Home Review of Systems 10-point ROS is otherwise unremarkable Respiratory: Shortness of Breath Physical Examination - Vital Signs Temperature: 97.5 F Blood Pressure: 92/55 Pulse: 72 Respirations: 18 Pulse Ox (%): 92 - Physical Exam General: Alert, In no apparent distress HEENT: Atraumatic, PERRLA, Mucous membr. moist/pink, EOMI, Sclerae nonicteric Neck: Supple, 2+ carotid pulse no bruit, No LAD, Without JVD or thyroid abnormality Respiratory: Clear to auscultation bilaterally, Normal air movement Cardiovascular: Regular rate/rhythm, Normal S1 S2 Gastrointestinal: Normal bowel sounds, No tenderness Musculoskeletal: No tenderness Integumentary: No rashes Neurological: Normal gait, Normal speech, Normal strength at 5/5 x4 extr, Normal tone, Normal affect Lymphatics: No axilla or inguinal lymphadenopathy - Studies Laboratory Data (last 24 hrs) 11/02/18 02:05: PT 12.8 H, INR 1.08 11/02/18 02:05: WBC 10.5, Hgb 11.8 L, Hct 35.1 L, Plt Count 279 11/02/18 02:05: Sodium 138, Potassium 4.0, BUN 29 H, Creatinine 1.10, Glucose 295 H, Magnesium 2.0, Total Bilirubin 0.5, AST 35, ALT 43, Alkaline Phosphatase 104, Lipase 99 - Diagnosis (Problem(s)) (1) Rapid atrial fibrillation Status: Chronic Plan: WITH ANY KIND OF SALT OVERLOAD SHE CAN GO INTO HEART FAILURE SHE HAS A. FIB. I BELIEVE THAT IS WHAT HAPPENED. SHE HAS NO CHEST PAIN. SHE FOR NOW WAS TAKING LASIX AND SPIRONOLACTONE FOR EDEMA BUT I TOLD HER TO TAKE IT DAILY SHE WILL NOT BE ABLE TO CHANGE HER DIET TO HEART HEALTHY DIET LONG SHE HAS TO DEPEND ON ASSISTED LIVING FACILITY. DAUGHTER IN LAW UNDERSTANDS. I WILL SEE HER IN OFFICE IN TWO WEEKS. - Disposition Disposition: ROUTINE DISCHARGE
[2018-11-03] MEDS ORDERED: Levofloxacin500mg IV 500 MG/100 ML BAG IV SCH (03:00)
--- NOTE | 2018-11-03 04:07 | CON ---
Date of Consultation: 11/02/2018 The patient was admitted to Dr. Segura's service on 11/01/2018. I saw the patient myself on 8. Reason For Consultation: Atrial fibrillation with rapid ventricular response and history of congesti ve heart failure. History Of Present Illness: Criselda Arango is a 78-year-old white woman, has a history of atrial fibrill ation, gastritis, anemia, aortic regurgitation, moderate mitral regurgitation. She has a history of pulmonary hypertension, left ventricular hypertrophy and CVA. Came in with abdominal pain mid-epigas tric to suprapubic with some shortness of breath, noted that her heart rate was fast. Denies any anoop sea, vomiting or diaphoresis. Denied any PND, orthopnea, pedal edema. She denied any syncope. She did have palpitations. Denied any fever or chills. She had a digoxin level of 0.6. Her BNP was 251 0. Her glucose was 295. She is feeling better today. Allergies: INCLUDE SULFA. Review of Systems: Negative. Social History: Negative. Family History: Noncontributory. Medications: At home include Lipitor, digoxin, Lasix, iron, Protonix and potassium. Physical Examination: General: She is pleasant, alert, and oriented x3, in atrial fibrillation at a rate of 110, afebrile. HEENT: Negative. Neck: Supple without any bruit, lymphadenopathy, JVD, or thyromegaly. Chest: Clear to auscultation and percussion. Cardiac: Revealed atrial fibrillation with mitral regurgitation, murmur and aortic sclerosis. No ga llops or rubs. Abdomen: Benign. Extremities: Revealed no clubbing, cyanosis, or edema. Skin: Dry and intact. Vascular: Examination was normal. She had normal dorsalis pedis and posterior tibial bilaterally. Diagnostic Data: Stated earlier. Impression And Plan: 1.A rapid atrial fibrillation probably secondary to a viral syndrome with abdominal pain and shortne ss of breath. The patient is not a candidate for anticoagulation, because she has bled on both Xarel to and Eliquis in the past. There is an echocardiogram pending and I agree with that. 2.History of gastritis. 3.Anemia. 4.Moderate aortic and mitral regurgitation. 5.History of cerebrovascular accident that has resolved. 6.History of left ventricular hypertrophy. 7.Pulmonary hypertension. These problems are stable. The case was discussed with Dr. Segura and with the patient and with the dakotah higgins. We can certainly increase her digoxin dose when she goes home. She may need to be gently hyd rated. She can certainly go home whenever it is okay with Dr. Segura. We will see her in the office in the next 2-4 weeks. PANKAJ Voice ID: [id number] Report ID: [id number]
== END 2018-11-02 18:22 | disposition home health service (06) ==
LOC: ER 01:44 → INTOOBSV 05:04 → ERHOLD 05:04 → 2ND 06:35
PROVIDERS: ADMIT Internal Medicine; ATTEND Internal Medicine
DX: I48.91 Unspecified atrial fibrillation (principal); D64.9 Anemia, unspecified; I08.0 Rheumatic disorders of both mitral and aortic valves; Z88.2 Allergy status to sulfonamides; Z87.891 Personal history of nicotine dependence; Z86.73 Personal history of transient ischemic attack (TIA), and cerebral infarction without residual deficits
CPT/HCPCS: 36415; 71045; 74177; 76705; 80048; 80076; 80162; 82805; 83605 ×2; 83690; 83735; 83880; 84484 ×3; 85025; 85610; 87040 ×2; 93005; 93306; 94660; 96365; 96375; 97162; 99285; C9113 ×2; G0378 ×2; J1160; J1940 ×2; J2405; J2920; J2930; J7030; Q9967